=== PATIENT | female | born 1955 | race Caucasian/White ===

== ENCOUNTER 2016-08-21 12:03 | Emergency (ER) | payer MEDICAID ==
[~2016-08-21] VITALS: Ht 154.9 cm; Wt 90.7 kg
[~2016-08-21 12:03] MED LIST: ACET-285 PO; CHOL20007 PO; DIPH50TA9 PO; DOCU-94 PO; FOLI1TAB51 PO; MAGN400C2 PO; MULTTAB99 PO; OMEP20TA44 PO; OYST500T28 PO; PAR20T PO; PRAV20TA3 PO; [UNRECOGNIZED DRUG - CODE] PO
[2016-08-21 12:15] VITALS: BP 140/84
[2016-08-21] MEDS ORDERED: KETOROLAC TROMETH 30 MG/ML 1ML VIAL IV ONE (12:45)
[2016-08-21] MEDS ORDERED: ONDANSETRON HCL 4 MG/2 ML VIAL IV ONE (12:45)
[2016-08-21] MEDS ORDERED: SODIUM CHLORIDE 0.9% 1,000 ML IV ONE (12:45)
[2016-08-21 13:15] LABS: Basophils # (auto) 0 uL; Basophils % (auto) 0.2 % (0.0-2.0); Eosinophils # (auto) 0.1 uL; Hematocrit 42.6 % (36.0-46.0); Hemoglobin 13.9 g/dL (12.2-16.2); Lymphocytes # (auto) 1.3 uL; Mean Corpuscular Hemoglobin 29.6 pg (28.0-32.0); Mean Corpuscular Hgb Conc. 32.7 g/dL (32.0-36.0); Mean Corpuscular Volume 90.6 fL (80.0-100.0); Mean Platelet Volume 7.5 fL (7.4-10.4); Monocytes # (auto) 0.5 uL; Monocytes % (auto) 4.1 % (0.0-12.0); Neutrophils # (auto) 10.1 uL; Neutrophils % (auto) 83.7 % (37.0-80.0); Platelet Count (auto) 449 10^3/uL (140-450); Red Cell Distribution Width 14.9 % (11.6-16.0)
[2016-08-21 13:22] LABS: Albumin 3.6 g/dL (3.4-5.0); Bilirubin, Total 0.2 mg/dL (0.2-1.0); Total Protein 7.9 g/dL (6.4-8.2)
== END 2016-08-21 15:44 | disposition home or self-care (01) ==
LOC: EDBD 12:03 → ER 12:09
DX: R51 Headache (principal); F17.210 Nicotine dependence, cigarettes, uncomplicated; F15.10 Other stimulant abuse, uncomplicated; E78.5 Hyperlipidemia, unspecified; I10 Essential (primary) hypertension
CPT/HCPCS: 36415; 70450; 71020; 80053; 85025; 93005; 96361; 96374; 96375; 99285; J1885; J2405; J7030